=== PATIENT | male | born 1995 | race Caucasian/White ===

== ENCOUNTER 2018-07-03 23:02 | Emergency (ER) | payer BC ==
[~2018-07-03] VITALS: Ht 167.6 cm; Wt 72.6 kg
[2018-07-03] MEDS ORDERED: TDAP DIPH,PERTUSS,TET VAC/PF 0.5 ML DISP.SYRIN IM ONE (23:44)
[2018-07-03] MEDS: TDAP DIPH,PERTUSS,TET VAC/PF 0.5 ML DISP.SYRIN IM ONE (23:56)
--- NOTE | 2018-07-03 23:57 | NUR ---
Patient discharged to home in stable conditon. Written and verbal after care instructions given. Patient verbalizes understanding of instructions.
[2018-07-03 23:58] VITALS: BP 114/77
== END 2018-07-03 23:59 | disposition home or self-care (01) ==
LOC: ER 23:09
DX: T63.441A Toxic effect of venom of bees, accidental (unintentional), initial encounter (principal); L03.115 Cellulitis of right lower limb; Y92.89 Other specified places as the place of occurrence of the external cause
CPT/HCPCS: 90715; A4663